=== PATIENT | male | born 1990 | race Caucasian/White ===

== ENCOUNTER 2017-03-05 13:30 | Emergency (ER) | payer OTHER ==
[2017-03-05 13:36] VITALS: BP 160/78
[2017-03-05 13:49] LABS: RAPID STREP SCREEN REAGENT QC YELLOW (YELLOW)
--- NOTE | 2017-03-05 13:50 | ED Physician Documentation ---
PD HPI URI - Stated complaint Stated Complaint: SORE THROAT/HEADACHE/N - Chief complaint Chief Complaint: General - History obtained from History obtained from: Patient - History of Present Illness Timing - onset: Yesterday Timing duration: Days (2) Timing details: Abrupt onset, Still present Associated symptoms: Chills, Sore throat, Dry cough, NVD (nausea only). No: Fever, Swollen nodes Contributing factors: Sick contact (coworkers with URI and cough symptoms recently.). No: Travel, Immunocompromised Improves by: No: Medication (tried Nyquil last night) Similar symptoms before: Has not had sx before Recently seen: Not recently seen Review of Systems Constitutional: reports: Chills, Myalgias Nose: reports: Congestion Throat: reports: Sore throat Respiratory: reports: Cough GI: reports: Nausea. denies: Vomiting, Diarrhea Skin: denies: Rash, Lesions Neurologic: reports: Headache. denies: Altered mental status, Head injury PD PAST MEDICAL HISTORY - Past Medical History Past Medical History: No Respiratory: None Neuro: None Endocrine/Autoimmune: None - Past Surgical History Past Surgical History: No - Present Medications Home Medications: Ambulatory Orders Medication Instructions Recorded Confirmed Dexamethasone [Decadron] 4 mg PO DAILY #5 tablet 03/05/17 Ibuprofen [Motrin] 600 mg PO TID #20 tab 03/05/17 Ondansetron Odt [Zofran] 4 mg TL Q6H PRN #15 tablet 03/05/17 - Allergies Allergies/Adverse Reactions: Allergies Allergy/AdvReac Type Severity Reaction Status Date / Time No Known Drug Allergies Allergy Verified 03/05/17 13:36 - Social History Does the pt smoke?: No Smoking Status: Never smoker Does the pt drink ETOH?: Yes ETOH Use: Beer Does the pt have substance abuse?: No - Immunizations Immunizations are current?: Yes - POLST Patient has POLST: No PD ED PE NORMAL - Vitals Vital signs reviewed: Yes - General General: Alert and oriented X 3, No acute distress, Well developed/nourished - HEENT HEENT: Ears normal, Moist mucous membranes, Pharynx benign (minimal redness without exudate nor peritonsillar swelling. ) - Neck Neck: Supple, no meningeal sign, No adenopathy - Cardiac Cardiac: RRR, No murmur - Respiratory Respiratory: Clear bilaterally - Derm Derm: Normal color, Warm and dry, No rash - Neuro Neuro: Alert and oriented X 3, No motor deficit, Normal speech Results - Vitals Vitals: Vital Signs - 24 hr 03/05/17 13:34 Temperature 37.0 C Heart Rate 93 Respiratory 18 Rate Blood Pressure 160/78 H O2 Saturation 97 Oxygen O2 Source Room air - Labs Labs: Laboratory Tests 03/05/17 13:35 Group A Strep Rapid Negative Departure - Departure Disposition: Home, Self Care Clinical Impression: Upper respiratory infection Qualifiers: URI type: unspecified URI Qualified Code(s): J06.9 - Acute upper respiratory infection, unspecified Condition: Stable Record reviewed to determine appropriate education?: Yes Instructions: ED Upper Resp Infec No Abx Tx Follow-Up: [facility] Cardenas [Provider Group] Prescriptions: Dexamethasone [Decadron] 4 mg PO DAILY #5 tablet Ibuprofen [Motrin] 600 mg PO TID #20 tab Ondansetron Odt [Zofran] 4 mg TL Q6H PRN #15 tablet PRN Reason: Nausea / Vomiting Comments: This sounds like a viral illness. Your rapid strep is negative and will see if the culture shows any bacterial infection. Will call you if it does grow any germs. Viral illnesses do not typically grow in culture. For the symptoms then we would treat with anti-inflammatory to help with the immune response so less general symptoms and a nausea medicine to decrease those symptoms. Encourage lots of fluids. Rest at home today and tomorrow. Progress activity as able after that. For fevers and pains use Tylenol or ibuprofen. He can also use cough or cold medicines such as NyQuill or DayQuil or cough medicine, though they all work fairly mediocrely. Forms: Activity restrictions
[2017-03-05] MEDS ORDERED: ACETAMINOPHEN 325 MG TABLET PO STA (14:02)
[2017-03-05] MEDS ORDERED: ONDANSETRON ODT 4 MG TABLET TL STA (14:02)
[2017-03-05] MEDS ORDERED: DEXAMETHASONE 10 MG/ML VIAL PO STA (14:02)
[2017-03-05] MEDS ORDERED: ONDANSETRON ODT 4 MG TABLET ONE (14:13)
[2017-03-05] MEDS ORDERED: ACETAMINOPHEN 325 MG TABLET PO ONE (14:13)
[2017-03-05] MEDS ORDERED: DEXAMETHASONE 10 MG/ML VIAL ONE (14:13)
== END 2017-03-05 14:11 | disposition home or self-care (01) ==
LOC: ED 13:30
DX: J06.9 Acute upper respiratory infection, unspecified (principal)
CPT/HCPCS: 87070; 87430; 99283; A9270; Q0162

== ENCOUNTER 2018-06-09 02:30 | Emergency (ER) | payer OTHER ==
--- NOTE | 2018-06-09 03:06 | ED Physician Documentation ---
PD HPI GI BLEED - Stated complaint Stated Complaint: RECTAL BLEED - Chief complaint Chief Complaint: Abd Pain - History obtained from History obtained from: Patient - History of Present Illness Timing - onset: Enter time (00:00 (midnight)), Today Timing - details: Abrupt onset Pain level max: 0 Pain level now: 0 Associated symptoms: BRBPR. No: Vomiting, Coffee ground emesis, Hematemesis, Maroon stool, Black/tarry stool, Diarrhea, Constipation, Abdominal pain Similar symptoms before: No diagnosis (similar episode few months ago, was evaluated at ED and f/u with PMD but no further testing as bleeding resolved without specific intervention.) Review of Systems Constitutional: denies: Fever GI: reports: Bloody / black stool. denies: Abdominal Pain, Nausea, Vomiting, Constipation, Diarrhea, Hematemesis Endocrine: denies: Easy bruising / bleeding PD PAST MEDICAL HISTORY - Past Medical History Past Medical History: No Respiratory: None Endocrine/Autoimmune: None - Past Surgical History Past Surgical History: No - Present Medications Home Medications: Ambulatory Orders Medication Instructions Recorded Confirmed No Known Home Medications 06/09/18 06/09/18 - Allergies Allergies/Adverse Reactions: Allergies Allergy/AdvReac Type Severity Reaction Status Date / Time No Known Drug Allergies Allergy Verified 06/09/18 02:39 - Social History Does the pt smoke?: No Smoking Status: Never smoker Does the pt drink ETOH?: Yes ETOH Use: Wine, Beer, Liquor Does the pt have substance abuse?: No - Immunizations Immunizations are current?: Yes - POLST Patient has POLST: No PD ED PE NORMAL - Vitals Vital signs reviewed: Yes - General General: Alert and oriented X 3, No acute distress, Well developed/nourished - Abdomen Abdomen: Soft, Non tender PD ED PE EXPANDED - Rectal Rectal: Heme Occult Pos - QC +, Normal Tone. No: Mass, Hemorrhoid, Fissure Results - Vitals Vitals: Vital Signs - 24 hr 06/09/18 06/09/18 02:30 04:36 Temperature 36.9 C 36.4 C L Heart Rate 87 76 Respiratory 15 14 Rate Blood Pressure 150/97 H 146/89 H O2 Saturation 98 98 Oxygen O2 Source Room air - Labs Labs: Laboratory Tests 06/09/18 06/09/18 03:32 03:32 WBC 10.1 RBC 5.45 Hgb 16.0 Hct 45.9 MCV 84.2 MCH 29.4 MCHC 35.0 RDW 12.8 Plt Count 221 MPV 8.8 Neut # (Auto) 5.7 Lymph # (Auto) 2.8 Mckean # (Auto) 0.6 Eos # (Auto) 1.0 H Baso # (Auto) 0.1 Absolute Nucleated RBC 0.01 Nucleated RBC % 0.1 Sodium 137 Potassium 3.2 L Chloride 102 Carbon Dioxide 26 Anion Gap 9.0 BUN 14 Creatinine 0.9 Estimated GFR (MDRD) 102 Glucose 101 H Calcium 9.4 PD MEDICAL DECISION MAKING - ED course Complexity details: reviewed results, re-evaluated patient, considered differential, d/w patient Departure - Departure Disposition: Home, Self Care Clinical Impression: Lower GI bleed Condition: Good Instructions: ED [place]emat[place] Stable Follow-Up: [facility] Cardenas [Provider Group] Discharge Date/Time: 06/09/18 04:47
[2018-06-09 03:41] LABS: BASOPHILS # (AUTO) 0.1 10^3/uL (0.0-0.1); BASOPHILS % (AUTO) 0.5 %; EOSINOPHILS % (AUTO) 9.6 %; LYMPHOCYTES # (AUTO) 2.8 10^3/uL (1.5-3.5); LYMPHOCYTES % (AUTO) 27.4 %; MEAN CORPUSCULAR HEMOGLOBIN 29.4 pg (27.0-31.0); MEAN CORPUSCULAR VOLUME 84.2 fL (80.0-94.0); MEAN PLATELET VOLUME 8.8 fL (7.4-11.4); MONOCYTES # (AUTO) 0.6 10^3/uL (0.0-1.0); MONOCYTES % (AUTO) 6.3 %; NEUTROPHILS # (AUTO) 5.7 10^3/uL (1.5-6.6); NEUTROPHILS % (AUTO) 56.2 %; PLT - PLATELET COUNT 221 10^3/uL (130-450); RED BLOOD COUNT 5.45 10^6/uL (4.70-6.10); RED CELL DISTRIBUTION WIDTH 12.8 % (12.0-15.0); WHITE BLOOD COUNT 10.1 x10^3/uL (4.8-10.8)
[2018-06-09 03:47] LABS: CALCIUM 9.4 mg/dL (8.5-10.3); CREATININE 0.9 mg/dL (0.6-1.2)
[2018-06-09 04:36] VITALS: BP 146/89
== END 2018-06-09 04:47 | disposition home or self-care (01) ==
LOC: ED 02:30
DX: K92.2 Gastrointestinal hemorrhage, unspecified (principal)
CPT/HCPCS: 36415; 80048; 85025; 99282; 99283